=== PATIENT | male | born 1970 | race Caucasian/White ===

== ENCOUNTER 2018-02-15 08:19 | Emergency (ER) | payer MEDICAID ==
[~2018-02-15] VITALS: Ht 180.3 cm; Wt 108.4 kg
[2018-02-15 08:24] VITALS: BP 121/77; Ht 180.3 cm; Wt 108.4 kg
== END 2018-02-15 09:55 | disposition home or self-care (01) ==
LOC: ED 08:19
DX: M25.511 Pain in right shoulder (principal); M54.12 Radiculopathy, cervical region; M19.90 Unspecified osteoarthritis, unspecified site
CPT/HCPCS: Q0092

== ENCOUNTER 2018-03-18 13:31 | Emergency (ER) | payer OTHER ==
[~2018-03-18] VITALS: Ht 180.3 cm; Wt 112.0 kg
[2018-03-18 14:08] VITALS: Ht 180.3 cm; Wt 112.0 kg
[2018-03-18 16:16] VITALS: BP 116/67
== END 2018-03-18 16:16 | disposition home or self-care (01) ==
LOC: ED 13:31
DX: M75.101 Unspecified rotator cuff tear or rupture of right shoulder, not specified as traumatic (principal); I10 Essential (primary) hypertension